=== PATIENT | male | born 1990 ===

== ENCOUNTER 2018-07-29 12:42 | Outpatient (CLI) | payer OTHER | END 2018-07-29 12:43 | disposition home or self-care (01) | LOC: SONOGRAMA 12:42 → MAMO-SONO 07-30 08:15 | DX: R10.10 Upper abdominal pain, unspecified (principal) ==

== ENCOUNTER 2018-07-29 14:07 | Outpatient (CLI) | payer OTHER | END 2018-07-29 14:10 | disposition home or self-care (01) | LOC: LAB 14:07 | DX: R10.10 Upper abdominal pain, unspecified (principal); D64.89 Other specified anemias; I10 Essential (primary) hypertension; N39.0 Urinary tract infection, site not specified; E78.2 Mixed hyperlipidemia ==